=== PATIENT | female | born 1945 | race Caucasian/White ===

== ENCOUNTER → 2016-12-18 | Outpatient (CLI) | payer OTHER ==
[~2016-12-18] VITALS: Ht 165.1 cm; Wt 89.8 kg
[~2016-12-18] MED LIST: AMOX TR-K CLV1 EAC4 PO; ASMANEX TW200 MICRO1 IH; ATORVASTATIN CA20 MG PO; BENEFIBER236 GM PO; BISOPROLOL FUMA10 MG PO; CALCIUM ANTACI500 MG PO; CELEBREX200 MG PO; CILOSTAZOL100 MG PO; DOXYCYCLINE HY100 MG PO; EXCEDRIN EXTRA1 EACH PO; GABAPENTIN300 MG PO; HYDROCODON-ACE1 EAC7 PO; LEXAPRO20 MG PO; LISINOPRIL-HCT1 EACH PO; MELOXICAM15 MG PO; MIRALAX255 GM PO; MULTI VITAMIN1 EACH PO; MYCOSTATIN1 APPLICAT TP; NICOTINE PATCH1 EAC1 TD; OMEPRAZOLE20 MG PO; PRINZIDE 20-121 EACH PO; SYNTHROID50 MCG PO; TRIAMCINOLONE A15 G2 TP; TRIAMCINOLONE AC5 GM DT; TYLENOL WITH C1 EACH PO; VANCOMYCIN HCL1 GM IV; VERAPAMIL HCL360 MG PO; VITAMIN D-3 401 EACH PO
== END | disposition home or self-care (01) ==
LOC: AMB 13:28
DX: Z12.11 Encounter for screening for malignant neoplasm of colon (principal); D12.2 Benign neoplasm of ascending colon; D12.3 Benign neoplasm of transverse colon; D12.5 Benign neoplasm of sigmoid colon; D12.0 Benign neoplasm of cecum; K57.30 Diverticulosis of large intestine without perforation or abscess without bleeding; K62.89 Other specified diseases of anus and rectum; K52.9 Noninfective gastroenteritis and colitis, unspecified; K59.00 Constipation, unspecified; Z80.0 Family history of malignant neoplasm of digestive organs; Z81.1 Family history of alcohol abuse and dependence; F17.200 Nicotine dependence, unspecified, uncomplicated; Z88.5 Allergy status to narcotic agent
CPT/HCPCS: 88305; J2250; J2405

== ENCOUNTER 2017-05-02 21:50 | Inpatient (IN) | payer OTHER ==
[~2017-05-02] VITALS: Ht 165.1 cm; Wt 93.0 kg
[~2017-05-02 21:50] MED LIST changes: +ASPIR 8181 M1 PO; +IRON325 M1 PO
[2017-05-03 10:47] VITALS: BP 114/75
[2017-05-03 11:03] VITALS: BP 114/75
[2017-05-03 17:52] LABS: HEMATOCRIT 41.5 % (36.0-46.0); MCV 98.8 FL (83-99)
[2017-05-03 20:28] VITALS: BP 117/55
[2017-05-04] VITALS (7 sets, daily range): BP systolic 82–123; BP diastolic 50–66
[2017-05-04 07:15] LABS: ANION GAP 6 MEQ/L (2-14); CHLORIDE 106 MEQ/L (99-109); GFR ESTIMATE (CALCULATED) > 59 mL/min/; GLUCOSE 98 mg/dL (70-99); POTASSIUM 4.2 MEQ/L (3.7-5.4); SAMPLE HEMOLYSIS CHECK 0; SAMPLE ICTERIC CHECK 0; SAMPLE LIPEMIA CHECK 0; SODIUM 142 MEQ/L (136-147); UREA NITROGEN (BUN) 20 mg/dL (9-23)
[2017-05-05 00:27] VITALS: BP 110/63
[2017-05-05 04:30] VITALS: BP 95/55
[2017-05-05 07:49] VITALS: BP 92/54
[2017-05-05] MEDS ORDERED: BENADRYL25 MG PO (11:06)
[2017-05-05] MEDS ORDERED: XARELTO10 MG PO (11:08)
[2017-05-05] MEDS ORDERED: SENNA PLUS TAB1 EACH PO (11:08)
[2017-05-05] MEDS ORDERED: OXYCONTIN10 MG PO (11:08)
[2017-05-05] MEDS ORDERED: HYDROCODON-ACE1 EAC7 PO (11:08)
[2017-05-05 11:41] VITALS: BP 100/55
== END 2017-05-05 14:50 | DRG 470 ==
LOC: ENRESERV 21:50 → 2SOUTH 05-03 10:01 → ENRESERV 05-03 14:04 → 2SOUTH 05-03 14:47 → 3WEST 05-03 18:09
PROVIDERS: Orthopaedic Surgery Sports Medicine
PROC: 0SRC0J9 Replacement of Right Knee Joint with Synthetic Substitute, Cemented, Open Approach (ICD-10-PCS; principal; 2017-05-03)
DX: M17.11 Unilateral primary osteoarthritis, right knee (principal); I10 Essential (primary) hypertension; I71.2 Thoracic aortic aneurysm, without rupture; J44.9 Chronic obstructive pulmonary disease, unspecified; I25.10 Atherosclerotic heart disease of native coronary artery without angina pectoris; K21.9 Gastro-esophageal reflux disease without esophagitis; G47.30 Sleep apnea, unspecified; F32.9 Major depressive disorder, single episode, unspecified; E03.9 Hypothyroidism, unspecified; F17.210 Nicotine dependence, cigarettes, uncomplicated; Z79.82 Long term (current) use of aspirin; Z83.3 Family history of diabetes mellitus; Z82.49 Family history of ischemic heart disease and other diseases of the circulatory system
CPT/HCPCS: 73560; 80048; 85014; 85018; 97530 GO; C1713; J0131; J0171; J0690; J1170; J1885; J2250; J2405; J2795; J3010; J7050; J7120